=== PATIENT | female | born 1980 | race African-American/Black ===

== ENCOUNTER 2017-09-11 09:29 | Emergency (ER) | payer OTHER ==
[2017-09-11 09:38] VITALS: BP 159/90; PULSE 90; TEMP 98.7; BMI 40.1
--- NOTE | 2017-09-11 10:05 | PDOC ---
History of Present Illness - General Chief Complaint: Rash Stated Complaint: SPOTS ALL OVER BODY Time Seen by Provider: 09/11/17 09:41 History Source: Patient Exam Limitations: No Limitations - History of Present Illness Initial Comments: 09/11/17 09:59 Patient is a 37-year-old female, history of hypertension presents with white spots generalized to body. Patient states she did not noticed on prior, denies any new lotions soaps or detergents no pruritus no pain. No erythema. Past Medical History: Denies. Allergies: No known allergies Medications: Lisinopril Family History: Non-contributory Social History: Denies smoking, alcohol use, or IVDU Review of Systems GENERAL/CONSTITUTIONAL: No fever or chills. No weakness. No weight change. HEAD, EYES, EARS, NOSE AND THROAT: No change in vision. No ear pain or discharge. No sore throat. CARDIOVASCULAR: No chest pain or shortness of breath. RESPIRATORY: No cough, wheezing, or hemoptysis. GASTROINTESTINAL: No nausea, vomiting, diarrhea or constipation. No rectal bleeding. GENITOURINARY: No dysuria, frequency, or change in urination. MUSCULOSKELETAL: No joint or muscle swelling or pain. No neck or back pain. SKIN : No rash or easy bruising. White spots generalized to body. ALLERGIC/IMMUNOLOGIC: No hives or skin allergy. No latex allergy. Physical Exam: GENERAL: The patient is awake, alert, and fully oriented, in no acute distress. EYES: Pupils equal, round and reactive to light, extraocular movements intact, sclera anicteric, conjunctiva clear. ENT: Ears normal, nares patent, oropharynx clear without exudates. Moist mucous membranes. No uvula deviation NECK: Normal range of motion, supple without lymphadenopathy, JVD, or masses. LUNGS: Breath sounds equal, clear to auscultation bilaterally. No wheezes, and no crackles. HEART: Regular rate and rhythm, normal S1 and S2 without murmur, rub or gallop. ABDOMEN: Soft, nontender, normoactive bowel sounds. No guarding, no rebound. No masses. No bruising or abrasions MUSCULOSKELETAL: Normal range of motion, no edema. No clubbing or cyanosis. No cords, erythema, or tenderness. No CVA Tenderness with fist. NEUROLOGICAL: Cranial nerves II through XII grossly intact. Normal speech, normal gait. SKIN: Warm, Dry, normal turgor, no rashes. White patches, non raised, non pruritic patches, generalized to body. Past History - Past Medical History Allergies/Adverse Reactions: Allergies Allergy/AdvReac Type Severity Reaction Status Date / Time No Known Allergies Allergy Verified 09/11/17 09:48 Home Medications: Ambulatory Orders Lisinopril [Prinivil] 20 mg PO DAILY 09/11/17 Asthma: No Cancer: No Cardiac Disorders: No Diabetes: No HTN: No Seizures: No Thyroid Disease: No - Suicide/Smoking/Psychosocial Hx Smoking History: Never smoked Have you smoked in the past 12 months: No Number of Cigarettes Smoked Daily: 3 If you are a former smoker, when did you quit?: 10years ago Information on smoking cessation initiated: No Hx Alcohol Use: No Drug/Substance Use Hx: No Substance Use Type: None Hx Substance Use Treatment: No *Physical Exam - Vital Signs Last Vital Signs Temp Pulse Resp BP Pulse Ox 98.7 F 90 18 159/90 100 09/11/17 09:30 09/11/17 09:30 09/11/17 09:30 09/11/17 09:30 09/11/17 09:30 Medical Decision Making - Medical Decision Making 09/11/17 10:05 A/P : Patient with white nonraised , nonpruritic patches to skin, consistent with vitiligo. Follow up with dermatology. No evidence of secondary infection. *DC/Admit/Observation/Transfer Diagnosis at time of Disposition: Vitiligo - Discharge Dispostion Disposition: HOME Condition at time of disposition: Good Admit: No - Referrals Referrals: Aaron Hyatt [Non Staff, Medical] - ([phone]) - Patient Instructions Printed Discharge Instructions: Vitiligo (Alternative Therapy), DI for Vitiligo Additional Instructions: Follow up with dermatology.
== END 2017-09-11 10:12 | disposition home or self-care (01) ==
LOC: JERFT 09:29
DX: L80 Vitiligo (principal); I10 Essential (primary) hypertension
CPT/HCPCS: 99281-25